=== PATIENT | male | born 1950 | race Caucasian/White ===

== ENCOUNTER 2019-05-13 15:32 | Outpatient (CLI) | payer MEDICARE ==
[~2019-05-13 15:32] MED LIST: OXYC1TAB7 PO; PRED10TA PO
== END 2019-05-13 23:59 | disposition home or self-care (01) ==
LOC: CVU 15:32 → EDSTATUS 16:00 → CVU 23:59
PROVIDERS: ATTEND Internal Medicine Cardiovascular Disease
DX: I34.0 Nonrheumatic mitral (valve) insufficiency (principal); I10 Essential (primary) hypertension
CPT/HCPCS: 93306

== ENCOUNTER 2020-06-27 08:16 | Outpatient (CLI) | payer MEDICARE | END 2020-06-27 23:59 | disposition home or self-care (01) | LOC: CFH 08:16 | PROVIDERS: ATTEND Internal Medicine | DX: R91.1 Solitary pulmonary nodule (principal) | CPT/HCPCS: 71250 ==

== ENCOUNTER 2020-08-20 12:07 | Emergency (ER) | payer MEDICARE ==
[~2020-08-20] VITALS: Ht 177.8 cm; Wt 34.5 kg
--- NOTE | 2020-08-20 12:23 | NUR ---
[facility], PT WITH C/O L BACK AND LEG PAIN THAT BEGAN YESTERDAY AFTER TAKING A LONG WALK. PT WILEY TRAUMA, STATES HE IS ALSO HAVING TINGLING SENSATION. PT TO BP, CONT PULSE OX. AT BEDSIDE, AWAITING GLENYS GAINES
--- NOTE | 2020-08-20 12:57 | NUR ---
REPORT RECEIVED FROM JORDI BHATTI. ASSUMING PRIMARY CARE OF PT.
[2020-08-20] MEDS ORDERED: ONDANSETRON ODT 4 MG ONE (12:58)
[2020-08-20] MEDS ORDERED: MORPHINE SULFATE 4 MG/ML, 1ML ONE ×2 (12:58→13:24)
[2020-08-20] MEDS ORDERED: methylPREDNISolone SOD SUCC 125 MG/2 ML ONE (12:58)
[2020-08-20] MEDS ORDERED: methylPREDNISolone SOD SUCC 125 MG/2 ML IVPush ONE (13:00)
[2020-08-20] MEDS ORDERED: ONDANSETRON ODT 4 MG PO ONE (13:00)
--- NOTE | 2020-08-20 13:00 | NUR ---
FIRST ENCOUNTER WITH PT: PT STATES HE HAS 8/10 BACK PAIN AT THIS TIME. STATES PAIN GETS WORSE WITH AMBULATION. RN TO EST A PIV AND ADMINISTER MEDICATION PER EMAR.
[2020-08-20] MEDS: MORPHINE SULFATE 4 MG/ML, 1ML IVPush PRN ×2 (13:05→13:26)
--- NOTE | 2020-08-20 13:10 | NUR ---
PIV ACCESS OBTAINED, 20 L AC. MEDICATION ADMINSITERED PER EMAR. HEATED BLANKET PROVIDED TO PT FOR COMFORT.
--- NOTE | 2020-08-20 13:28 | NUR ---
RN ADMINSITERED SECOND DOSE OF MORPHINE PER EMAR FOR 5/10 PAIN. PA STATED TO HOLD OFF ON THE TORADOL AT THIS TIME. PENDING CT SCAN.
[2020-08-20] MEDS ORDERED: KETOROLAC 30 MG/1 ML IVPush ONE (13:30)
--- NOTE | 2020-08-20 13:44 | NUR ---
PT CURRENTLY IN CT SCAN.
--- NOTE | 2020-08-20 14:20 | NUR ---
RN REASSESSED PAIN. PT STATED "LITTLE" PAIN AT THIS TIME. PT UP FOR RECHECK. NO OTHER NEEDS AT THIS TIME.
[2020-08-20] MEDS ORDERED: BUPIVACAINE 0.25% ONE (14:21)
[2020-08-20] MEDS ORDERED: LIDOCAINE-MPF 1%, 5ML ONE (14:21)
--- NOTE | 2020-08-20 14:52 | NUR ---
PT BEING DISCHARGED HOME IN A STABLE CONDITION. PIV WAS REMOVED WITH TIP INTACT. DC INSTRUCTIONS DISCUSSED WITH PT. PT VERBALIZED UNDERSTANDING. NO FURTHER QUESTIONS OR CONCERNS EXPRESSED. RN TO TEACH PATIENT HOW TO AMBULATE WITH WALKER BEFORE DISCHARGE.
[2020-08-20 14:53] VITALS: BP 113/58
== END 2020-08-20 14:55 | disposition home or self-care (01) ==
LOC: ED 14:44
DX: S39.012A Strain of muscle, fascia and tendon of lower back, initial encounter (principal); M65.28 Calcific tendinitis, other site; I10 Essential (primary) hypertension; M19.90 Unspecified osteoarthritis, unspecified site; X58.XXXA Exposure to other specified factors, initial encounter; Y93.89 Activity, other specified; Y92.89 Other specified places as the place of occurrence of the external cause; Y99.8 Other external cause status
CPT/HCPCS: 20552; 73700; 96374; 96375; 99284; J2270; J2930; Q0162; 99285

== ENCOUNTER 2020-08-30 09:29 | Emergency (ER) | payer MEDICARE ==
[~2020-08-30] VITALS: Ht 167.6 cm; Wt 75.0 kg
[2020-08-30] MEDS ORDERED: DIAZEPAM 5 MG TABLET PO ONE (10:00)
[2020-08-30] MEDS ORDERED: KETOROLAC 30 MG/1 ML IM ONE (10:00)
[2020-08-30] MEDS ORDERED: DIAZEPAM 5 MG TABLET ONE (10:25)
[2020-08-30] MEDS ORDERED: KETOROLAC 30 MG/1 ML ONE (10:25)
--- NOTE | 2020-08-30 10:33 | NUR ---
TASK RN: [facility] FOR C/O LOWER BACK PAIN AND LLE PAIN. PT STATES PAIN STARTED 2 MONTHS AGO AND PAIN HAS GOTTEN WORSE TO THE POINT HE COULD NOT STAND AND WALK THIS AM. PT RESTING ON MIKE. NADN. FINE.
[2020-08-30 10:39] LABS: BASOPHILS % (AUTO) 1 % (0-1); EOSINOPHILS % (AUTO) 4 % (1-7); LYMPHOCYTES % (AUTO) 23 % (22-44); MEAN CORPUSCULAR HEMOGLOBIN 28.7 pg (27.5-34.5); MEAN CORPUSCULAR HGB CONC 32.8 g/dL (33.2-36.2); MEAN PLATELET VOLUME 10.1 fL (7.4-10.4); MONOCYTES % (AUTO) 13 % (2-9); NEUTROPHILS % (AUTO) 59 % (42-75); PLATELET COUNT 258 x10^3/uL (130-400); RED BLOOD COUNT 4.99 x10^6/uL (4.38-5.82); RED CELL DISTRIBUTION WIDTH 14.3 % (9.4-14.8)
[2020-08-30 10:43] LABS: MD NO
[2020-08-30 10:47] LABS: ALBUMIN 3.7 g/dL (3.4-5.0); ANION GAP 6 mmol/L (5-15); CALCIUM 9.9 mg/dL (8.5-10.1); CHLORIDE 111 mmol/L (98-107)
[2020-08-30 10:48] LABS: CREATININE 0.92 mg/dL (0.7-1.3)
--- NOTE | 2020-08-30 11:38 | NUR ---
TASK RN: PT RESTING ON GURNEY. NADN. FINE.
[2020-08-30 13:58] VITALS: BP 146/77
--- NOTE | 2020-08-30 13:59 | NUR ---
Patient/Caregiver given discharge instructions and they have confirmed that they understand the instructions. Patient ambulatory with steady gait.
== END 2020-08-30 14:00 | disposition home or self-care (01) ==
LOC: ED 10:23
DX: S39.012A Strain of muscle, fascia and tendon of lower back, initial encounter (principal); M48.061 Spinal stenosis, lumbar region without neurogenic claudication; I10 Essential (primary) hypertension; X58.XXXA Exposure to other specified factors, initial encounter; Y93.89 Activity, other specified; Y92.89 Other specified places as the place of occurrence of the external cause; Y99.8 Other external cause status
CPT/HCPCS: 36415; 72110; 72148; 80048; 82040; 85025; 96372; 99285; J1885

== ENCOUNTER → 2020-10-30 | Outpatient (CLI) | payer MEDICARE | END | disposition home or self-care (01) | LOC: CFH 14:14 | PROVIDERS: ATTEND Specialist | DX: K40.20 Bilateral inguinal hernia, without obstruction or gangrene, not specified as recurrent (principal); N20.0 Calculus of kidney; N28.89 Other specified disorders of kidney and ureter; M51.37 Other intervertebral disc degeneration, lumbosacral region | CPT/HCPCS: 74176 ==

== ENCOUNTER 2021-07-08 10:54 | Outpatient (CLI) | payer MEDICARE | END 2021-07-08 23:59 | disposition home or self-care (01) | LOC: CFH 10:54 | PROVIDERS: ATTEND Internal Medicine Cardiovascular Disease | DX: I34.0 Nonrheumatic mitral (valve) insufficiency (principal); I25.2 Old myocardial infarction; I10 Essential (primary) hypertension; E78.00 Pure hypercholesterolemia, unspecified; E10.9 Type 1 diabetes mellitus without complications | CPT/HCPCS: 93306; 93356 ==